=== PATIENT | male | born 1995 | race Caucasian/White ===

== ENCOUNTER 2025-04-13 19:03 | Emergency (ER) | payer SELFPAY ==
[~2025-04-13] VITALS: Ht 170.2 cm; Wt 86.0 kg
[2025-04-13 19:14] VITALS: TEMP 36.9; O2SAT 99
[2025-04-13] MEDS: SODIUM CHLORIDE 0.9% 1,000 ML IV ONE (20:31)
[2025-04-13] MEDS: METOCLOPRAMIDE HCL 10MG/2ML VIAL IV ONE (20:31)
[2025-04-13 20:48] LABS: HEMATOCRIT. 45.1 % (42.0-52.0); HEMOGLOBIN. 15.0 g/dL (14.0-18.0); MEAN PLATELET VOLUME 8.8 fl (7.4-10.4); PLATELET 303 x1000/uL (130-400); RED BLOOD CELL COUNT 5.06 mill/uL (4.7-6.1); RED CELL DISTRIBUTION WIDTH 13.1 % (11.6-14.6)
[2025-04-13 21:03] LABS: CREATININE 0.9 mg/dL (0.6-1.3); UREA NITROGEN BLOOD 13 mg/dL (9-23)
[2025-04-13 21:05] LABS: ASPARTATE AMINOTRANSFERASE 30 IU/L (<34); BILIRUBIN DIRECT 0.1 mg/dL (<=3.0); BILIRUBIN TOTAL 0.4 mg/dL (0.1-1.0); PROTEIN TOTAL 7.5 g/dL (6.0-8.3)
[2025-04-13 21:20] LABS: LYMPHOCYTES % MANUAL 6.0 % (20.0-50.0); MONOCYTES % MANUAL 5.0 % (2.0-8.0); NEUTROPHILS % MANUAL 89.0 % (45.0-75.0)
[2025-04-13 21:21] LABS: PLATELET ESTIMATE NORMAL
[2025-04-13 21:51] LABS: INR 1.0
[2025-04-13] MEDS: MAGNESIUM 2 G PREMIX 50 ML IV ONE (22:51)
[2025-04-14] MEDS ORDERED: ASPI1TAB8 PO (00:02)
[2025-04-14] MEDS: KETOROLAC 30MG/ML VIAL IV ONE (00:52)
[2025-04-14 01:00] VITALS: BP 121/77; PULSE 80; RESP 16; O2SAT 98
== END 2025-04-14 01:11 | disposition home or self-care (01) ==
LOC: ER 19:03
DX: G43.909 Migraine, unspecified, not intractable, without status migrainosus (principal); Z79.899 Other long term (current) drug therapy; Z98.890 Other specified postprocedural states
CPT/HCPCS: 80076; 80048; 83690; 85025; 85610; 86850; 86900; 86901; 36415; 70496; 70498; 70450; 96361; 96365; 96366; 96375 ×2; 99285; Q9967; J3475; J2765; J7030; Z7610; J1885